=== PATIENT | male | born 1990 | race African-American/Black ===

== ENCOUNTER 2019-04-16 23:11 | Emergency (ER) | payer OTHER, SELFPAY ==
[2019-04-17] MEDS ORDERED: Ketorolac Tromethamine 30 MG/ML VIAL ONE (01:25)
[2019-04-17] MEDS ORDERED: diphenhydrAMINE 50 MG/ML VIAL ONE (01:25)
[2019-04-17] MEDS ORDERED: Prochlorperazine 10 MG/2 ML VIAL IVP SCH (01:45)
== END 2019-04-17 02:45 | disposition home or self-care (01) ==
LOC: ERS 23:11
DX: R51 Headache (principal); J45.909 Unspecified asthma, uncomplicated; F17.210 Nicotine dependence, cigarettes, uncomplicated; Z71.6 Tobacco abuse counseling
CPT/HCPCS: 96361; 96374; 96375; 99406; J0780; J1200; J1885

== ENCOUNTER 2019-05-22 18:30 | Emergency (ER) | payer BC, OTHER ==
[2019-05-22] MEDS ORDERED: Ketorolac Tromethamine 30 MG/ML VIAL ONE (21:48)
== END 2019-05-22 21:55 | disposition home or self-care (01) ==
LOC: ERS 18:30
DX: S16.1XXA Strain of muscle, fascia and tendon at neck level, initial encounter (principal); Z71.6 Tobacco abuse counseling; J45.909 Unspecified asthma, uncomplicated; F17.210 Nicotine dependence, cigarettes, uncomplicated; X58.XXXA Exposure to other specified factors, initial encounter
CPT/HCPCS: 96372; 99406; J1885

== ENCOUNTER 2019-08-15 19:07 | Emergency (ER) | payer OTHER ==
[2019-08-15] MEDS ORDERED: Proparacaine 0.5% Opth 15 ML BOT ONE ×2 (19:18→19:19)
[2019-08-15] MEDS ORDERED: Fluorescein Opthalmic Strip ONE (19:18)
== END 2019-08-15 20:01 | disposition home or self-care (01) ==
LOC: ERS 19:07
DX: T15.02XA Foreign body in cornea, left eye, initial encounter (principal); J45.909 Unspecified asthma, uncomplicated; F17.210 Nicotine dependence, cigarettes, uncomplicated; W22.8XXA Striking against or struck by other objects, initial encounter
CPT/HCPCS: 99282

== ENCOUNTER 2020-02-02 21:23 | Inpatient (IN) | payer OTHER ==
[~2020-02-02 21:23] MED LIST: Iopamidol-370 76% 500 ML 1 ML ONE
[2020-02-02] MEDS ORDERED: Morphine 4 MG/ML VIAL ONE (21:52)
[2020-02-02] MEDS ORDERED: Ondansetron PF 4 MG/2 ML Vial ONE (21:52)
--- NOTE | 2020-02-02 22:15 | CT ---
CT Cervical Spine WO Con Indication: Follow-up from horse landing on left side of the body with neck pain COMPARISON: None. FINDINGS: Fracture: None. Spinal alignment: No acute malalignment. Craniocervical junction: Within normal limits. Vertebral body heights: Maintained. Cervical spine degenerative change: None of significance. Lung apices: Clear. IMPRESSION: No acute osseous abnormality.
--- NOTE | 2020-02-02 22:18 | CT ---
CT Brain WO Con: 02/02/2020 9:45 PM CLINICAL HISTORY: Trauma; fell from horse with possible head injury. IMAGING TECHNIQUE: Multiple CT images were obtained of the brain without IV contrast. COMPARISON: None. FINDINGS: BRAIN: Evidence of acute infarct: None. Evidence of chronic ischemic change:None. Evidence of intracranial hemorrhage: None. Evidence of midline shift: Third ventricle and septum pellucidum are midline. Ventricles: Normal. No hydrocephalus. SKULL: Intact. VISUALIZED PARANASAL SINUSES: Clear. MASTOID AIR CELLS: Clear. EXTRACRANIAL SOFT TISSUES: Normal. IMPRESSION: No acute intracranial abnormality.
--- NOTE | 2020-02-02 22:31 | CT ---
CT OF THE ABDOMEN AND PELVIS WITH IV CONTRAST INDICATION: History of being bucked from horse with close pelvic fracture COMPARISON: CT the pelvis without contrast dated February 02, 2020 from [facility] FINDINGS: ABDOMEN: Lung bases: Clear Liver: No focal lesion. Gallbladder: Normal appearing. Pancreas: Normal. Adrenal glands: Normal. Spleen: Normal. Kidneys and ureters: Normal. No hydronephrosis. Vasculature: Normal. Lymph nodes:No lymphadenopathy. Free fluid in abdomen:No free fluid is evident. PELVIS: Small and large bowel: Normal Appendix:Normal Bladder: The bladder remains deviated to the right by 2 left-sided and anterior extraperitoneal hemat omas. The hematomas are not appreciably changed in size. The anterior hematoma measures 3.6 cm. The left lateral pelvic hematoma measures 6.6 cm. There is a hematoma involving the lower anterior rectus abdominal musculature with small amount of hemorrhage seen within the anterior lower extraperitoneal space. There is edematous change involving the mons pubis. Rectal and perirectal soft tissues:Normal. Reproductive structures: Normal. Free fluid in pelvis: As above Lymphadenopathy pelvis: No lymphadenopathy is evident. Osseous structures: There is persistent diastases of the symphysis pubis. The degree of diastases is slightly less pronounced than on the prior examination now measuring 1.2 cm. There is some vacuum phenomenon within the left SI joint. Small amount of gas overlies left anterior sacral ala. The poste rior SI joints appear symmetric and within normal limits. There is scattered degenerative and osteoarthritic changes. Soft tissues:As above IMPRESSION: 1. Slight improvement of the symphysis pubis diastases. 2. Persistent anterior lower rectus abdominis muscular hematoma, anterior and left lateral extraperit degroot hematomas with persistent deviation of the bladder to the right. There is prominent contusion involving the soft tissues of the mons pubis. 3. No additional acute traumatic injury demonstrated.
[2020-02-02 22:35] LABS: #Lymphocytes 0.7 thou/uL (1.20-3.40); #Monocytes 0.7 thou/uL (0.11-0.59); #Neutrophils 7.8 thou/uL (1.40-6.50); %Basophils 0.2 % (0.0-1.0); %Eosinophils 0.3 % (0.0-10.0); %Lymphocytes 7.9 % (21.0-51.0); %Monocytes 7.8 % (0.0-10.0); %Neutrophils 83.8 % (42.0-75.0); Hemoglobin 11.7 g/dL (14.0-18.0); Mean Corpuscular Hemoglobin 32.9 pg (27.0-31.0); Mean Corpuscular Volume 96.9 fL (78.0-98.0); Mean Platelet Volume 6.5 fL (7.4-10.4); Platelet Count 220 thou/uL (130-400); RBC Distribution Width 11.8 % (11.5-14.5); Red Blood Cell (RBC) Count 3.55 mill/uL (4.70-6.10); White Blood Cell (WBC) Count 9.3 thou/uL (4.8-10.8)
--- NOTE | 2020-02-03 00:28 | HP ---
REQUESTING PHYSICIAN: Dr. White. ATTENDING SURGEON: Dr. Paz. CONSULTATIONS: Orthopedics, Dr. Matta. HISTORY OF PRESENT ILLNESS: The patient is a 29-year-old man who was riding a horse that he reports this is the first time the horse has been ridden and the horse threw him off. The patient does admit that he had been drinking prior to this ride and smoking marijuana. He was thrown off the horse. He did not hit his head, had no loss of consciousness. He was taken to the emergency department in [place], where he underwent evaluation and examination, was noted to have soft-tissue disruption of his pelvis anterior and posteriorly. The patient was subsequently transferred to our facility to undergo further evaluation and obtain Orthopedic consultation. ALLERGIES: NONE. CURRENT MEDICATIONS: None. PAST MEDICAL HISTORY: Asthma. PAST SURGICAL HISTORY: None. SOCIAL HISTORY: The patient works in [email or web address]. He reports drinking 3 to 4 beers per day. Occasional marijuana use and smokes approximately 1 pack of cigarettes per day. REVIEW OF SYSTEMS: 10-point review of systems is negative except otherwise stated. PHYSICAL EXAMINATION: VITAL SIGNS: Blood pressure 128/78, heart rate 82, respirations 18, oxygen saturation is 100% on room air, and temperature is 98.4. GENERAL: The patient is resting comfortably in bed. He is awake, alert, conversant, appropriate. [place] Coma Scale is 15. HEENT: Head is normocephalic and atraumatic. Eyes, extraocular motions intact. PERRLA bilaterally. Ears are atraumatic without discharge. Nose is atraumatic without discharge. Oropharynx is clear. NECK: Nontender. Trachea is midline. No JVD. CHEST: Clear to auscultation with good inspiratory and expiratory effort. HEART: Regular rate and rhythm. ABDOMEN: Soft, flat, nontender with active bowel sounds. EXTREMITIES: Neurovascularly intact x4. BACK: Atraumatic and nontender. Patient's pelvis was not palpated due to his known injuries. LABORATORY FINDINGS: White blood cell count 9.3, hemoglobin 11.7, hematocrit 34.4, platelets 220. Sodium 143, potassium 3.9, chloride 108, CO2 of 26, BUN 12, creatinine 1.38, glucose 120. LFTs are unremarkable. INR 1.0. Urinalysis is pending. CT of the brain without contrast shows no acute findings. CT of the C-spine shows no acute abnormalities. CT of the chest, abdomen, and pelvis shows a slight improvement of the symphysis pubis diastasis compared to earlier exam. Persistent anterior lower rectus abdominal muscular hematoma, anterior and left lateral extraperitoneal hematomas with persistent deviation of the bladder to the right. There is prominent contusion involving the soft tissues of the mons pubis. There is no additional acute traumatic injury noted. ASSESSMENT AND PLAN: 1. Status post fall from horse. 2. Symphysis pubis diastasis. 3. Extraperitoneal pelvic hematomas. 4. Lower rectus abdominal muscular hematoma. 5. Soft-tissue injury to the pelvis area. 6. Acute kidney injury, present on admission. PLAN: 1. Will be to admit the patient to the surgical floor. He will have IV hydration, pain medications, kept n.p.o., bedrest, and await surgical evaluation by Dr. Matta in the morning. 2. The evaluation, examination, laboratory, and radiographic findings will be discussed with Dr. Paz after this dictation. Dr. Matta was notified of the patient. Job ID: [id number]
[2020-02-03] MEDS ORDERED: hydrALAZINE 20 MG/ML VIAL SLOW IVP PRN (00:33)
[2020-02-03] MEDS ORDERED: traMADol HCl 50 MG TAB PO PRN ×2 (00:33)
[2020-02-03] MEDS ORDERED: Morphine 2 MG/ML SYRINGE SLOW IVP PRN (00:33)
[2020-02-03] MEDS ORDERED: Dextrose 5% in Water 1,000 ML IV PRN (00:33)
[2020-02-03] MEDS ORDERED: Dextrose 50% Abboject 50 ML SYRINGE SLOW IVP PRN (00:33)
[2020-02-03] MEDS ORDERED: Morphine 4 MG/ML VIAL SLOW IVP PRN (00:33)
[2020-02-03] MEDS ORDERED: Cyclobenzaprine 10 MG TAB PO PRN (00:33)
[2020-02-03] MEDS ORDERED: Ondansetron ODT 4 MG TAB PO PRN (00:33)
[2020-02-03] MEDS ORDERED: Ondansetron PF 4 MG/2 ML Vial IVP PRN (00:33)
[2020-02-03 00:38] VITALS: BMI 21.4
[2020-02-03] MEDS: Ibuprofen 600 MG TAB PO SCH ×3 (00:51→18:15)
[2020-02-03] MEDS: Acetaminophen 325 MG TAB PO SCH ×4 (00:51→18:14)
[2020-02-03] MEDS: Sodium Chloride 0.9% 1,000 ML IV SCH ×2 (00:53→17:41)
[2020-02-03 01:09] LABS: Hemoglobin 12.3 g/dL (14.0-18.0)
[2020-02-03 08:05] LABS: #Basophils 0.1 thou/uL (0.0-0.2); #Eosinphils 0.1 thou/uL (0.0-0.7); #Monocytes 1.4 thou/uL (0.11-0.59); #Neutrophils 8.4 thou/uL (1.40-6.50); %Basophils 0.5 % (0.0-1.0); %Eosinophils 0.6 % (0.0-10.0); %Lymphocytes 8.8 % (21.0-51.0); %Monocytes 12.7 % (0.0-10.0); %Neutrophils 77.4 % (42.0-75.0); Hemoglobin 12.1 g/dL (14.0-18.0); Mean Corpuscular HGB CONC 34.3 g/dL (32.0-36.0); Mean Corpuscular Hemoglobin 33.3 pg (27.0-31.0); Mean Platelet Volume 6.6 fL (7.4-10.4); Platelet Count 213 thou/uL (130-400); RBC Distribution Width 11.8 % (11.5-14.5); Red Blood Cell (RBC) Count 3.63 mill/uL (4.70-6.10); White Blood Cell (WBC) Count 10.8 thou/uL (4.8-10.8)
[2020-02-03 08:08] LABS: Hemoglobin 12.1 g/dL (14.0-18.0)
--- NOTE | 2020-02-03 08:21 | RAD ---
AP PELVIS: HISTORY: Injury with fracture. FINDINGS: There is diastasis of the pubic symphysis. There appears to be diastasis of the SI joints. No definit e fracture identified. The urinary bladder is opacified. IMPRESSION: Diastasis of the pubic symphysis and widening of the sacroiliac joints. POS: AGW
[2020-02-03 08:24] LABS: Anion Gap 10 mmol/L (10-20); BUN (Urea Nitrogen) 13 mg/dL (8.9-20.6); Calc. Creatinine Clearance 95 mL/min (70-130); Calcium 8.3 mg/dL (7.8-10.44); Carbon Dioxide 24 mmol/L (22-29); Chloride 106 mmol/L (98-107); Estimated GFR-MDRD Greater than 90; Glucose 78 mg/dL (70-105); Potassium 4.1 mmol/L (3.5-5.1); Sodium 136 mmol/L (136-145)
--- NOTE | 2020-02-03 09:47 | CON ---
DATE OF CONSULTATION: This is Eduardo Oconnell PA-C dictating a report for Ayush Matta MD. HISTORY OF PRESENT ILLNESS: This is a very pleasant young man, who was riding a horse yesterday when he was bucked off and he sustained a pelvic injury. He denies any other injuries. No loss of consciousness. He denies any numbness and tingling in the upper or lower extremities. Denies any back pain. He was offered medication yesterday and he refused this. He adamantly denies any other injuries. He did not walk yesterday and was n.p.o. by Trauma as their thinking was we do surgery today, but other than the symphysis pubis disruption, could see no other fractures in the pelvis. PAST MEDICAL HISTORY: Asthma. PAST SURGICAL HISTORY: None. CURRENT MEDICATIONS: None. ALLERGIES: NONE. SOCIAL HISTORY: He works in [employer]. He has an occasional [employer] beverage. Smokes half to one pack cigarettes a day. To me, he denied any drug use whatsoever. FAMILY HISTORY: For this current event is not applicable. REVIEW OF SYSTEMS: Negative. Healthy rhoda. No shortness of breath. No bowel or bladder changes. No chest pain. No extremity issues. Breathing okay. Denies any ENT problems. Rest of review of systems negative. PHYSICAL EXAMINATION: GENERAL: Well-nourished, well-developed, very pleasant young man, resting in a bed in room 3332. Speech clear. Affect pleasant. Answers questions appropriately. He is alert and oriented x3. HEENT: Face symmetric. Tongue midline. No obvious bruising seen to scalp or face. NECK: Supple. Trachea midline. Movement is full. LUNGS: Respirations 16 and no acute distress. PELVIS: Some pain with rocking, but he is moving around the bed okay. EXTREMITIES: Upper extremities equal size, shape, and symmetry. Normal bulk and tone. Lower extremities, normal exam. Pulses to upper and lower extremities are equal and symmetric. DIAGNOSTIC DATA: X-rays show a symphysis pubis disruption, but could not see any other injuries to the pelvis. ASSESSMENT: Pelvis injury, symphysis pubis disruption. PLAN: Again, he was n.p.o. and bedrest per Trauma. We changed this to full diet and activity. I have talked with physical therapy already this morning. They are going to get him up to see how he does. I encouraged the patient if he does have pain to take some medications, this could be quite painful when he is actually upright. If he has any symptoms when he is upright, he needs to let us know. I talked to him that pain can cause some nausea and he might have some dizziness when he stands. So, let us know this also and in a few days, we will get new x-rays of the patient's standing, AP pelvis with inlet and outlet views. The patient understands. Hopefully, he will do okay and we can get him home fairly soon in the future. Job ID: [id number]
[2020-02-03] MEDS: Famotidine 20 MG TAB PO SCH ×2 (09:55→22:32)
[2020-02-03] MEDS: traMADol HCl 50 MG TAB PO SCH ×3 (09:55→22:32)
[2020-02-03 13:54] LABS: Hemoglobin 12.2 g/dL (14.0-18.0)
--- NOTE | 2020-02-03 15:55 | PRG ---
DATE OF SERVICE: 02/03/2020 SUBJECTIVE: Mr. Mosley is a 29-year-old male status post fall from a horse. The patient suffered from peritoneum contusion with no gross hematuria. The patient reports pain is well controlled. He is able to work with Physical Therapy and Occupational Therapy. He walked 50 feet this morning. No gross hematuria to be reported. No incontinence to be reported. The patient tolerated with the diet. Orthopedic, Dr. Matta will repeat the pelvic x-rays tomorrow and make decision if patient needs to go to the surgery for pelvic fixation. OBJECTIVE: GENERAL: Currently the patient is lying in bed, comfortable, with no acute respiratory distress. Pain is minimal. VITAL SIGNS: Stable. LUNGS: Clear bilaterally. HEART: Regular rate and rhythm. ABDOMEN: Soft, nondistended. EXTREMITIES: Neurovascularly intact x4. NEUROLOGIC: No focal neurology deficits. GCS 15. ASSESSMENT: 1. Status post fall from a horse. 2. open book pelvic fracture, stable. PLAN: Continue supportive care. Continue pain control. Continue working with Physical Therapy and Occupational Therapy. We will initiate chemical DVT prophylaxis tomorrow. We will wait for Orthopedic decision on pelvic fracture fixation. Job ID: [id number] [facility]
[2020-02-03 16:37] VITALS: TEMP 97.8
[2020-02-03 19:07] LABS: Bilirubin Negative (Negative); Blood, Urine Negative (Negative); Clarity Clear (Clear); Glucose, Urine (Dipstick) Normal (Negative); Leukocyte Negative Leu/uL (Negative); Nitrite Negative (Negative); Protein, Urine (Dipstick) Negative (Neg-Trace); Urobilinogen Normal mg/dL (Less than 2)
[2020-02-04] MEDS: Acetaminophen 325 MG TAB PO SCH ×3 (01:28→14:19)
--- NOTE | 2020-02-04 01:36 | PRG ---
DATE OF SERVICE: 02/03/2020 HISTORY OF PRESENT ILLNESS: The patient is currently on the surgical floor. He is status post being thrown from a horse, in which he sustained a pubic symphysis disruption and slight pelvic diastasis. After review of his CTs, plain radiographs, and orthopedic consultation, it was felt that the patient be managed nonoperatively. The patient did work with Physical and Occupational Therapy today. He walked approximately 150 feet. His pain is controlled. He is tolerating a diet. He is urinating without difficulty. His urinalysis was unremarkable. Tomorrow, he will be re-evaluated again by Physical and Occupational Therapy, and discussion will be made for his discharge planning. PHYSICAL EXAMINATION: VITAL SIGNS: Stable. The patient is afebrile. GENERAL: The patient is resting comfortably in bed. He is awake, alert, and oriented x3. [place] Coma Scale is 15. HEENT: Unremarkable. LUNGS: Clear to auscultation. Good inspiratory and expiratory effort. HEART: Regular rate and rhythm. ABDOMEN: Soft, flat, nontender with active bowel sounds. EXTREMITIES: Neurovascularly intact x4. ASSESSMENT: 1. Status post fall from horse. 2. Symphysis pubis diastasis, stable. 3. Extraperitoneal pelvic hematoma, stable. Hemoglobins remained stable. 4. Lower rectus abdominal muscular hematoma, stable. 5. Soft tissue injury to the pelvis area, stable. 6. Acute kidney injury, resolved. PLAN: Will be to continue supportive care. Physical and occupational therapy and await final discharge disposition decision. Job ID: [id number]
[2020-02-04] MEDS: Ibuprofen 600 MG TAB PO SCH ×2 (01:59→09:39)
[2020-02-04] MEDS: traMADol HCl 50 MG TAB PO SCH ×2 (04:51→09:39)
[2020-02-04 08:29] VITALS: BP 114/75
[2020-02-04] MEDS ORDERED: Enoxaparin Sodium 30 MG/0.3 ML SYRINGE SC SCH (09:00)
[2020-02-04] MEDS: Famotidine 20 MG TAB PO SCH (09:38)
--- NOTE | 2020-02-04 12:05 | RAD ---
AP view of the pelvis INDICATION: Fall COMPARISON: Radiograph dated February 03 2020. FINDINGS: Bones: There is widening of the symphysis pubis to 2.2 cm. SI joints appear within normal limits. No additional fracture is evident. Hips: Intact. SI joints and symphysis pubis: Widening of the symphysis pubis to 2.2 cm Intrapelvic contents: Within normal limits. IMPRESSION: Stable diastases of the symphysis pubis.
== END 2020-02-04 15:10 | disposition home or self-care (01) | DRG 537 ==
LOC: ERS 21:23 → SURG A 02-03 00:32
PROVIDERS: ADMIT Specialist; ATTEND Specialist
DX: S33.4XXA Traumatic rupture of symphysis pubis, initial encounter (principal); N17.9 Acute kidney failure, unspecified; W01.0XXA Fall on same level from slipping, tripping and stumbling without subsequent striking against object, initial encounter; S30.0XXA Contusion of lower back and pelvis, initial encounter; S30.1XXA Contusion of abdominal wall, initial encounter; J45.909 Unspecified asthma, uncomplicated; F17.210 Nicotine dependence, cigarettes, uncomplicated; F12.90 Cannabis use, unspecified, uncomplicated; Y93.52 Activity, horseback riding
CPT/HCPCS: 36415; 70450; 72125; 72170; 72190; 74177; 80048; 81003; 85014; 85018; 86850; 86900; 86901; 96374; 96375; G0390; J2270; J2405; Q9967